=== PATIENT | male | born 1970 | race Caucasian/White ===

== ENCOUNTER 2018-04-01 18:35 | Emergency (ER) | payer SELFPAY ==
[~2018-04-01] VITALS: Ht 175.3 cm; Wt 85.0 kg
[2018-04-01 19:08] VITALS: BP 138/86; PULSE 111; RESP 18; TEMP 101.6; O2SAT 97
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
[2018-04-01] MEDS ORDERED: CLIN150C14 PO (20:59)
[2018-04-01] MEDS ORDERED: IBUP-232 PO (20:59)
[2018-04-01] MEDS ORDERED: CLINDAMYCIN PHOS 600 MG/4 ML VIAL IM ONE (21:00)
[2018-04-01] MEDS ORDERED: ACETAMINOPHEN 500 MG CPLT PO ONE (21:00)
[2018-04-01] MEDS ORDERED: IBUPROFEN 800 MG TAB PO ONE (21:00)
== END 2018-04-01 22:12 | disposition home or self-care (01) ==
LOC: NEPC 18:35
DX: K04.7 Periapical abscess without sinus (principal); I10 Essential (primary) hypertension; Z72.0 Tobacco use
CPT/HCPCS: 96372